=== PATIENT | male | born 1980 | race Caucasian/White ===

== ENCOUNTER 2017-10-12 18:58 | Emergency (ER) | payer MEDICAID | END 2017-10-12 20:14 | disposition home or self-care (01) | LOC: D.ER 18:58 | DX: J11.1 Influenza due to unidentified influenza virus with other respiratory manifestations (principal); B34.9 Viral infection, unspecified; I10 Essential (primary) hypertension ==

== ENCOUNTER 2017-11-07 21:22 | Emergency (ER) | payer MEDICAID ==
[2017-11-07 22:08] LABS: BASOPHILS 0.2 % (0-2); EOSINOPHILS 4.8 % (0-7); HEMATOCRIT 42.9 % (42.0-54.0); HEMOGLOBIN 14.5 g/dL (13.5-17.5); IMMATURE GRANULOCYTES 0.3 % (0-5); LYMPHOCYTES 33.8 % (15-50); MCH 30.7 pg (26.0-34.0); MCHC 33.8 g/dL (31.0-37.0); MCV 90.7 fL (80.0-100.0); MEAN PLATELET VOLUME 11.2 fL (7.4-10.4); MONOCYTES 13.1 % (2-11); NEUTROPHILS 47.8 % (40-80); PLATELET COUNT 157 10x3/uL (130-400); RBC 4.73 10x6/uL (4.20-6.10); RDW 12.1 % (11.5-14.5); WBC 6.5 10x3/uL (4.8-10.8)
[2017-11-07 22:20] LABS: ALBUMIN 3.9 g/dL (3.4-5.0); ALKALINE PHOSPHATASE 86 U/L (46-116); ALT (SGPT) 48 U/L (10-68); CALC OSMOLALITY 278 mosm/kg (275-300); CALCIUM 8.3 mg/dL (8.5-10.1); CARBON DIOXIDE 28.3 mmol/L (21.0-32.0); CHLORIDE - SERUM 102 mmol/L (98-107); CREATININE - SERUM 1.4 mg/dL (0.6-1.3); GLUCOSE 98 mg/dL (74-106); POTASSIUM - SERUM 3.5 mmol/L (3.5-5.1); PROTEIN - SERUM 7.5 g/dL (6.4-8.2); SODIUM 139 mmol/L (136-145); UREA NITROGEN 16 mg/dL (7-18); eGFR NON AFRICAN AMERICAN 61 mL/min (90-120)
[2017-11-07 22:30] LABS: CKMB 0.9 U/L (0.0-3.6); CREATINE KINASE 209 UL (21-232); TROPONIN-I < 0.017 ng/mL (0.000-0.060)
== END 2017-11-07 23:00 | disposition home or self-care (01) ==
LOC: D.ER 21:22
PROVIDERS: Family Medicine
DX: R07.89 Other chest pain (principal); F41.9 Anxiety disorder, unspecified; F17.200 Nicotine dependence, unspecified, uncomplicated; J20.9 Acute bronchitis, unspecified; I10 Essential (primary) hypertension

== ENCOUNTER 2017-12-13 04:06 | Emergency (ER) | payer MEDICAID | END 2017-12-13 04:30 | disposition home or self-care (01) | LOC: D.ER 04:06 | DX: J01.90 Acute sinusitis, unspecified (principal); J20.9 Acute bronchitis, unspecified; I10 Essential (primary) hypertension ==

== ENCOUNTER → 2018-01-19 12:57 | Outpatient (CLI) | payer MEDICAID | END | disposition home or self-care (01) | LOC: D.MRI 01-17 15:00 | DX: M54.16 Radiculopathy, lumbar region (principal) ==

== ENCOUNTER 2018-02-02 06:44 | Emergency (ER) | payer SELFPAY | END 2018-02-02 08:00 | disposition home or self-care (01) | LOC: D.ER 06:44 | DX: S93.401A Sprain of unspecified ligament of right ankle, initial encounter (principal); W22.8XXA Striking against or struck by other objects, initial encounter; Y93.89 Activity, other specified; Y92.019 Unspecified place in single-family (private) house as the place of occurrence of the external cause ==

== ENCOUNTER 2018-03-16 09:01 | Emergency (ER) | payer SELFPAY ==
[~2018-03-16] VITALS: Ht 182.9 cm; Wt 99.1 kg
[2018-03-16 09:04] VITALS: Ht 182.9 cm; Wt 99.1 kg
[2018-03-16] MEDS ORDERED: CELEXA40 MG PO (09:06)
[2018-03-16] MEDS ORDERED: ABILIFY10 MG PO (09:06)
[2018-03-16] MEDS ORDERED: OMEPRAZOLE20 M1 PO (09:06)
[2018-03-16] MEDS ORDERED: PRINIVIL20 MG PO (09:06)
[2018-03-16] MEDS ORDERED: HYDROCODONE-APA1 TAB PO (09:07)
[2018-03-16 09:49] VITALS: BP 126/078
== END 2018-03-16 09:50 | disposition home or self-care (01) ==
LOC: D.ER 09:01
DX: T63.461A Toxic effect of venom of wasps, accidental (unintentional), initial encounter (principal); Y92.019 Unspecified place in single-family (private) house as the place of occurrence of the external cause; F17.200 Nicotine dependence, unspecified, uncomplicated

== ENCOUNTER 2018-06-18 09:49 | Emergency (ER) | payer BC ==
[~2018-06-18] VITALS: Ht 182.9 cm; Wt 99.1 kg
[~2018-06-18 09:49] MED LIST: ABILIFY10 MG PO; CELEXA40 MG PO; HYDROCODONE-APA1 TAB PO; OMEPRAZOLE20 M1 PO; PRINIVIL20 MG PO
[2018-06-18 10:00] VITALS: Ht 182.9 cm; Wt 99.1 kg
[2018-06-18] MEDS ORDERED: CLEOCIN HCL300 MG PO (11:20)
[2018-06-18] MEDS ORDERED: KEFLEX500 MG PO (11:20)
[2018-06-18 11:31] VITALS: BP 118/68
== END 2018-06-18 11:32 | disposition home or self-care (01) ==
LOC: D.ER 09:49
DX: L03.317 Cellulitis of buttock (principal); I10 Essential (primary) hypertension; F17.200 Nicotine dependence, unspecified, uncomplicated

== ENCOUNTER 2019-05-31 16:51 | Emergency (ER) | payer BC ==
[~2019-05-31] VITALS: Ht 182.9 cm; Wt 94.5 kg
[~2019-05-31 16:51] MED LIST changes: +CLEOCIN HCL300 MG PO; +KEFLEX500 MG PO
[2019-05-31 17:20] VITALS: Ht 182.9 cm; Wt 94.5 kg
[2019-05-31] MEDS ORDERED: BUPROPION XL300 MG PO (17:22)
[2019-05-31 17:38] LABS: APPEARANCE HAZY (CLEAR); BILIRUBIN NEGATIVE (NEGATIVE); COLOR BROWN (YELLOW); GLUCOSE NEGATIVE (NEGATIVE); KETONE NEGATIVE (NEGATIVE); NITRITE NEGATIVE (NEGATIVE); PROTEIN 1+ mg/dL (NEGATIVE); SPECIFIC GRAVITY 1.025 (1.005-1.020); UROBILINOGEN NORMAL (NORMAL)
[2019-05-31 17:40] LABS: BACTERIA MODERATE /hpf (NONE SEEN); RED CELLS - URINE >50 /hpf (0-5); WHITE CELLS - URINE OCC /hpf (0-5); YEAST <1+ /hpf (NONE SEEN)
[2019-05-31] MEDS ORDERED: FLOMAX0.4 MG PO (19:56)
[2019-05-31] MEDS ORDERED: TORADOL10 MG PO (19:56)
[2019-05-31] MEDS ORDERED: ZOFRAN8 MG PO (19:56)
[2019-05-31 21:39] VITALS: BP 109/71
== END 2019-05-31 21:41 | disposition home or self-care (01) ==
LOC: D.ER 16:51
PROVIDERS: Family Medicine
DX: R10.9 Unspecified abdominal pain (principal)

== ENCOUNTER 2019-06-11 18:46 | Emergency (ER) | payer BC ==
[~2019-06-11] VITALS: Ht 182.9 cm; Wt 94.5 kg
[~2019-06-11 18:46] MED LIST changes: +BUPROPION XL300 MG PO; +FLOMAX0.4 MG PO; +TORADOL10 MG PO; +ZOFRAN8 MG PO
[2019-06-11 18:56] VITALS: Ht 182.9 cm; Wt 94.5 kg
[2019-06-11 20:06] LABS: APPEARANCE CLOUDY (CLEAR); BILIRUBIN NEGATIVE (NEGATIVE); COLOR YELLOW (YELLOW); GLUCOSE NEGATIVE (NEGATIVE); KETONE NEGATIVE (NEGATIVE); NITRITE NEGATIVE (NEGATIVE); PROTEIN 1+ mg/dL (NEGATIVE); SPECIFIC GRAVITY 1.025 (1.005-1.020)
[2019-06-11 20:08] LABS: BACTERIA FEW /hpf (NONE SEEN); MUCUS <1+ /lpf (NONE SEEN); RED CELLS - URINE >50 /hpf (0-5); WHITE CELLS - URINE OCC /hpf (0-5)
[2019-06-11] MEDS ORDERED: FLOMAX0.4 MG PO (20:55)
[2019-06-11] MEDS ORDERED: HYDROCODONE-A1 UDTA2 PO (20:55)
[2019-06-11 21:35] VITALS: BP 120/83
== END 2019-06-11 21:35 | disposition home or self-care (01) ==
LOC: D.ER 18:46
PROVIDERS: Emergency Medicine
DX: R10.9 Unspecified abdominal pain (principal); N20.0 Calculus of kidney; I10 Essential (primary) hypertension

== ENCOUNTER 2019-06-12 04:58 | Emergency (ER) | payer BC ==
[~2019-06-12] VITALS: Ht 182.9 cm; Wt 94.5 kg
[~2019-06-12 04:58] MED LIST changes: +HYDROCODONE-A1 UDTA2 PO
[2019-06-12 05:01] VITALS: Ht 182.9 cm; Wt 94.5 kg
[2019-06-12 06:39] VITALS: BP 115/67
== END 2019-06-12 06:39 | disposition home or self-care (01) ==
LOC: D.ER 04:58
DX: R10.9 Unspecified abdominal pain (principal); N20.0 Calculus of kidney; I10 Essential (primary) hypertension

== ENCOUNTER 2019-12-04 21:59 | Emergency (ER) | payer SELFPAY ==
[~2019-12-04] VITALS: Ht 182.9 cm; Wt 97.7 kg
[2019-12-04 22:32] VITALS: Ht 182.9 cm; Wt 97.7 kg
[2019-12-04 23:41] VITALS: BP 132/89
== END 2019-12-04 23:35 | disposition home or self-care (01) ==
LOC: D.ER 21:59
DX: F41.9 Anxiety disorder, unspecified (principal); F32.9 Major depressive disorder, single episode, unspecified; R45.4 Irritability and anger

== ENCOUNTER → 2021-02-17 16:48 | Outpatient (CLI) | payer BC ==
[2019-12-04 22:32] VITALS: BMI 29.2
== END | disposition home or self-care (01) ==
LOC: D.MRI 16:30
PROVIDERS: ATTEND Emergency Medicine
DX: M54.16 Radiculopathy, lumbar region (principal)